=== PATIENT | female | born 1955 | race Caucasian/White ===

== ENCOUNTER 2018-03-14 15:09 | Emergency (ER) | payer MEDICARE, OTHER ==
[2018-03-14] MEDS: NICARDipine HCL 30 MG CAPSULE PO ×2 (15:29→15:32)
== END 2018-03-14 15:50 | disposition home or self-care (01) ==
LOC: E/R 15:09
DX: I10 Essential (primary) hypertension (principal)
CPT/HCPCS: 93005; 99283-25

== ENCOUNTER 2018-04-11 08:38 | Emergency (ER) | payer MEDICARE, OTHER | END 2018-04-11 09:47 | disposition home or self-care (01) | LOC: FTE 08:38 | DX: H72.92 Unspecified perforation of tympanic membrane, left ear (principal); I10 Essential (primary) hypertension | CPT/HCPCS: 99283 ==